=== PATIENT | male | born 1980 | race Hispanic/Latino ===

== ENCOUNTER 2018-10-02 19:40 | Observation (INO) | payer OTHER, SELFPAY ==
[2018-10-02 21:03] LABS: Absolute Lymphocytes (CBC) 1.8 K/uL (0.7-4.9); Absolute Monocytes 0.7 K/uL (0.1-1.3); Absolute Neutrophil 10.1 K/uL (1.8-8.0); Basophils % 0.6 % (0-1.3); Eosinophils % 0.2 % (0-4.4); Hematocrit 48.1 % (39.6-49.0); Lymphocytes % 14.3 % (15.3-44.8); MCH 28.7 pg (27.0-35.0); MCV 84.3 fL (80-100); Monocytes % 5.4 % (3.3-12.3)
--- NOTE | 2018-10-02 21:04 | RAD REPORT ---
EXAM DESCRIPTION: CT - Head Brain Wo Cont - 10/02/2018 8:57 pm CLINICAL HISTORY: ataxia, falls to left Drowsiness COMPARISON: No comparisons TECHNIQUE: All CT scans are performed using dose optimization technique as appropriate and may inclu de automated exposure control or mA/KV adjustment according to patient size. FINDINGS: No intracranial hemorrhage, hydrocephalus or extra-axial fluid collection.No areas of brai n edema or evidence of midline shift. Small mucous retention cyst is seen in the right maxillary antrum. The paranasal sinuses and mastoids are otherwise clear. The calvarium is intact. IMPRESSION: No acute intracranial abnormality.
[2018-10-02 21:33] LABS: Protime INR 1.03
[2018-10-02 21:35] LABS: ALT/SGPT 37 U/L (12-78); AST/SGOT 23 U/L (15-37); Alkaline Phosphatase 118 U/L (45-117); BUN Blood Urea Nitrogen 11 mg/dL (7-18); Bicarbonate 25 mmol/L (21-32); Bilirubin Direct 0.1 mg/dL (0-0.2); Bilirubin Total 0.6 mg/dL (0.2-1.0); Glucose Level 97 mg/dL (74-106); Potassium 3.7 mmol/L (3.5-5.1); Protein, Total 7.9 g/dL (6.4-8.2); Sodium Level 141 mmol/L (136-145); Troponin (Emerg Dept Use Only) < 0.02 ng/mL (0.0-0.045)
--- NOTE | 2018-10-02 22:14 | ER ---
Nurse's Notes [facility] Name: Boby Allen Age: 38 yrs Sex: Male : 1980 Arrival Date: 10/02/2018 Time: 19:48 Bed 19 Private MD: Diagnosis: Ataxia, unspecified Presentation: 10/02 19:53 Presenting complaint: Patient states: seen at urgent care at 1800 for "walking to left ak1 at 4pm." pt with unsteady gait at 1600 today. Transition of care: patient was not received from another setting of care. Onset of symptoms is unknown. Care prior to arrival: None. 19:53 Method Of Arrival: Ambulatory ak1 19:53 Acuity: TANK 3 ak1 20:59 Risk Assessment: Do you want to hurt yourself or someone else? Patient reports no lp1 desire to harm self or others. Initial Sepsis Screen: Does the patient meet any 2 criteria? No. Patient's initial sepsis screen is negative. Does the patient have a suspected source of infection? No. Patient's initial sepsis screen is negative. Historical: - Allergies: 19:55 No Known Allergies; ak1 - Home Meds: 19:55 None [Active]; ak1 - PMHx: 19:55 None; ak1 - PSHx: 19:55 Cholecystectomy; ak1 - Immunization history:: Adult Immunizations up to date. - Social history:: Smoking status: Patient/guardian denies using tobacco. - Family history:: not pertinent. - Ebola Screening: : No symptoms or risks identified at this time. - Hospitalizations: : No recent hospitalization is reported. Screenin:58 Abuse screen: Denies threats or abuse. Denies injuries from another. Nutritional lp1 screening: No deficits noted. Tuberculosis screening: No symptoms or risk factors identified. Fall Risk None identified. 22:20 Patient has been NPO before screening. The patient is alert, able to follow commands. lp1 The patient does not exhibit slurred or garbled speech The patient is not exhibiting difficulty speaking. The patient does not exhibit difficulty understanding words. The patient is able to swallow own secretions with no drooling or need for suction. Patient tolerated one teaspoon of water. No drooling, immediate coughing, gurgling, or clearing of the throat was noted. The patient tolerated 90mL of water. No drooling, immediate coughing, gurgling, or clearing of the throat was noted. The patient passed the bedside swallow screening. Oral medications may be given as ordered. Contact Physician for further diet orders. Provider notified of bedside swallow screening results: Bar Andesren MD. Assessment: 20:15 General: Appears in no apparent distress. comfortable, Behavior is calm, cooperative, lp1 appropriate for age. Pain: Complains of pain in back of head. Neuro: Level of Consciousness is awake, alert, obeys commands, Oriented to person, place, time, situation, Land Use Planner are equal bilaterally Moves all extremities. Full function Gait is steady, Speech is normal, Facial symmetry appears normal, Pupils are PERRLA, Intact Reports headache occipital area. Cardiovascular: Patient's skin is warm and dry. Rhythm is sinus rhythm. Respiratory: Respiratory effort is even, unlabored. GI: Abdomen is non-distended. : No signs and/or symptoms were reported regarding the genitourinary system. EENT: No signs and/or symptoms were reported regarding the EENT system. Derm: Skin is pink, warm \\T\\ dry. Musculoskeletal: Circulation, motion, and sensation intact. 21:15 Reassessment: Patient appears in no apparent distress at this time. No changes from lp1 previously documented assessment. Patient and/or family updated on plan of care and expected duration. Pain level reassessed. 22:15 Reassessment: Patient and/or family updated on plan of care and expected duration. Pain lp1 level reassessed. Patient is alert, oriented x 3, equal unlabored respirations, skin warm/dry/pink. Patient denies pain at this time. 23:15 Reassessment: Patient is alert, oriented x 3, equal unlabored respirations, skin lp1 warm/dry/pink. Patient and family aware of pending admission. 10/03 00:20 Reassessment: Attempted to call report, nurse will call back. lp1 Vital Signs: 10/02 19:55 BP 132 / 80; Pulse 83; Resp 18; Temp 98; Pulse Ox 98% on R/A; Weight 99.79 kg (R); ak1 Height 5 ft. 7 in. (170.18 cm) (R); Pain 0/10; 21:00 BP 115 / 66; Pulse 70; Resp 18; Pulse Ox 97% on R/A; lp1 22:00 BP 115 / 73; Pulse 71; Resp 18; Pulse Ox 97% on R/A; lp1 23:00 BP 125 / 78; Pulse 60; Resp 18; Pulse Ox 96% on R/A; lp1 10/03 00:00 BP 119 / 77; Pulse 68; Resp 18; Pulse Ox 96% on R/A; lp1 10/02 19:55 Body Mass Index 34.46 (99.79 kg, 170.18 cm) ak1 NIH Stroke Scale Scores: 10/02 20:15 NIHSS Score: 0 lp1 ED Course: 19:48 Patient arrived in ED. al2 19:55 Triage completed. ak1 19:55 Arm band placed on Patient placed in an exam room, Patient notified of wait time. ak1 20:01 Arlin Enamorado RN is Primary Nurse. lp1 20:07 Bar Andersen MD is Attending Physician. rn 20:15 Patient has correct armband on for positive identification. Placed in gown. Bed in low lp1 position. satellite project site monitor on. Pulse ox on. NIBP on. 20:45 Inserted saline lock: 20 gauge in left antecubital area, using aseptic technique. Blood lp1 collected. 20:58 CT completed. Patient tolerated procedure well. Patient moved back from CT. bq 22:13 Skylar Roberts MD is Hospitalizing Provider. rn 10/03 00:06 Patient moved to radiology via wheelchair. sg4 00:11 No provider procedures requiring assistance completed. Patient admitted, IV remains in lp1 place. Administered Medications: 10/02 22:24 Drug: Aspirin Chewable Tablet 324 mg Route: PO; lp1 10/03 00:28 Follow up: Response: No adverse reaction lp1 Point of Care Testing: Blood Glucose: 10/02 20:53 Blood Glucose: 97 mg/dL; lp1 Ranges: Outcome: 22:14 Decision to Hospitalize by Provider. rn 10/03 00:12 Condition: stable lp1 Instructed on the need for admit. 00:48 Admitted to Tele accompanied by tech, via wheelchair, room 408, with chart, Report lp1 called to SHUBHAM Mehta 00:52 Patient left the ED. lp1 NIH Stroke Scale - NIH Stroke Score Date: 10/02/2018 Time: 20:15 Total Score = 0 1a. Level of Consciousness (LOC) - 0(Alert) 1b. Level of Consciousness (LOC) (Year \\T\\ Age) - 0(Both) 1c. LOC Commands (Open \\T\\ Closes Eyes/Roto Rooter Operator) - 0(Both) 2. Best Gaze (Lateral Gaze Paresis) - 0(Normal) 3. Visual Field Loss - 0(No visual loss) 4. Facial Palsy - 0(Normal) 5a. Left Arm: Motor (10-second hold) - 0(No drift) 5b. Right Arm: Motor (10-second hold) - 0(No drift) 6a. Left Leg: Motor (5-second hold - always test supine) - 0(No drift) 6b. Right Leg: Motor (5-second hold - always test supine) - 0(No drift) 7. Limb Ataxia (finger/nose \\T\\ heel/armstrong - test with eyes open) - 0(Absent) 8. Sensory Loss (pinprick arms/legs/face) - 0(Normal) 9. Best Language: Aphasia (description/naming/reading) - 0(No aphasia) 10. Dysarthria (speech clarity - read or repeat words) - 0(Normal) 11. Extinction and Inattention (visual/tactile/auditory/spatial/personal) - 0(No abnormality) Initials: lp1 Signatures: Antonia Westbrook Roman, MD MD rn Pena, Laura RN RN lp1 Danelle Cobian RN RN ak1 Harper, Natalie araiza2 Darby Smith sg4
--- NOTE | 2018-10-02 22:15 | EDPHYS ---
Physician Documentation [facility] Name: Boby Allen Age: 38 yrs Sex: Male : 1980 Arrival Date: 10/02/2018 Time: 19:48 Bed 19 Private MD: ED Physician Bar Andersen HPI: 10/02 20:45 This 38 yrs old Male presents to ER via Ambulatory with complaints of trouble rn walking. 20:45 The patient presents to the emergency department with difficult walking, the patient rn falls to the left. Onset: The symptoms/episode began/occurred at 16:00. Associated signs and symptoms: Pertinent negatives: chills, dizziness, fever, neck stiffness, paresthesias, near-syncope, blurred vision, double vision, visual field changes, loss of vision, weakness. Severity of symptoms: At their worst the symptoms were moderate in the emergency department the symptoms have resolved. Current symptoms: Currently, the patient is not experiencing any symptoms. The patient has not experienced similar symptoms in the past. The patient has not recently seen a physician. Reports falling to left and feeling off balance, began around 4PM today, lasted 30 min to 1 hour, no associating focal weakness, no head injury, no vomiting, no speech difficulty, reports symptoms now entirely resolved, has not happened before. . Historical: - Allergies: 19:55 No Known Allergies; ak1 - Home Meds: 19:55 None [Active]; ak1 - PMHx: 19:55 None; ak1 - PSHx: 19:55 Cholecystectomy; ak1 - Immunization history:: Adult Immunizations up to date. - Social history:: Smoking status: Patient/guardian denies using tobacco. - Family history:: not pertinent. - Ebola Screening: : No symptoms or risks identified at this time. - Hospitalizations: : No recent hospitalization is reported. ROS: 20:45 Constitutional: Negative for fever, chills, and weight loss, Eyes: Negative for injury, rn pain, redness, and discharge, Neck: Negative for injury, pain, and swelling, Cardiovascular: Negative for chest pain, palpitations, and edema, Respiratory: Negative for shortness of breath, cough, wheezing, and pleuritic chest pain, Abdomen/GI: Negative for abdominal pain, nausea, vomiting, diarrhea, and constipation, MS/Extremity: Negative for injury and deformity, Skin: Negative for injury, rash, and discoloration, Neuro: Negative for headache, weakness, numbness, tingling, and seizure. Exam: 20:45 Constitutional: This is a well developed, well nourished patient who is awake, alert, rn and in no acute distress. Head/Face: Normocephalic, atraumatic. Eyes: Pupils equal round and reactive to light, extra-ocular motions intact. Lids and lashes normal. Conjunctiva and sclera are non-icteric and not injected. Cornea within normal limits. Periorbital areas with no swelling, redness, or edema. ENT: MMM Cardiovascular: Regular rate and rhythm with a normal S1 and S2. No gallops, murmurs, or rubs. No pulse deficits. Respiratory: Lungs have equal breath sounds bilaterally, clear to auscultation Abdomen/GI: soft, non-tender MS/ Extremity: Pulses equal, no cyanosis. Neurovascular intact. Full, normal range of motion. Equal circumference. Neuro: Awake and alert, GCS 15, oriented to person, place, time, and situation. Cranial nerves II-XII grossly intact. Motor strength 5/5 in all extremities. Sensory grossly intact. Cerebellar exam normal. Normal gait. Vital Signs: 19:55 BP 132 / 80; Pulse 83; Resp 18; Temp 98; Pulse Ox 98% on R/A; Weight 99.79 kg (R); ak1 Height 5 ft. 7 in. (170.18 cm) (R); Pain 0/10; 21:00 BP 115 / 66; Pulse 70; Resp 18; Pulse Ox 97% on R/A; lp1 22:00 BP 115 / 73; Pulse 71; Resp 18; Pulse Ox 97% on R/A; lp1 23:00 BP 125 / 78; Pulse 60; Resp 18; Pulse Ox 96% on R/A; lp1 10/03 00:00 BP 119 / 77; Pulse 68; Resp 18; Pulse Ox 96% on R/A; lp1 10/02 19:55 Body Mass Index 34.46 (99.79 kg, 170.18 cm) ak1 NIH Stroke Scale Scores: 10/02 20:15 NIHSS Score: 0 lp1 MDM: 20:07 Patient medically screened. rn 20:22 ED course: Pt now back to baseline, reports ataxia, falling only to left side, lasted rn 30 min to 1 hour, asymptomatic now, able to walk, no other symptoms, possible TIA. . 22:13 Data reviewed: vital signs, nurses notes, lab test result(s), EKG, radiologic studies, rn CT scan, and as a result, I will admit patient. Counseling: I had a detailed discussion with the patient and/or guardian regarding: the historical points, exam findings, and any diagnostic results supporting the discharge/admit diagnosis, lab results, radiology results, the need for further work-up and treatment in the hospital. Admission orders: after a detailed discussion of the patient's condition and case, the admit orders are written by me. ED course: Pt back to normal, possible TIA, will admit for TIA w/u.. 10/02 20:22 Order name: Basic Metabolic Panel rn 10/02 20:22 Order name: CBC with Diff rn 10/02 20:22 Order name: Hepatic Function rn 10/02 20:22 Order name: Magnesium rn 10/02 20:22 Order name: Protime (+inr) rn 10/02 20:22 Order name: Ptt, Activated rn 10/02 20:22 Order name: Troponin (emerg Dept Use Only) rn 10/02 21:25 Order name: CBC with Automated Diff; Complete Time: 22:01 EDCO 10/02 21:35 Order name: Basic Metabolic Panel; Complete Time: 22:01 EDCO 10/02 21:35 Order name: Liver (Hepatic) Function; Complete Time: 22:01 EDCO 10/02 21:35 Order name: Troponin (Emerg Dept Use Only); Complete Time: 22:01 EDCO 10/02 21:35 Order name: Magnesium; Complete Time: 22:01 EDCO 10/02 21:44 Order name: Protime (+INR); Complete Time: 22:01 EDCO 10/02 21:44 Order name: PTT, Activated Partial Thromb; Complete Time: 22:01 EDCO 10/02 20:22 Order name: CT Head Brain wo Cont rn 10/02 20:22 Order name: EKG; Complete Time: 20:23 rn 10/02 20:22 Order name: Cardiac monitoring; Complete Time: 20:55 rn 10/02 20:22 Order name: EKG - Nurse/Tech; Complete Time: 20:55 rn 10/02 20:22 Order name: IV Saline Lock; Complete Time: 20:55 rn 10/02 20:22 Order name: Labs collected and sent; Complete Time: 20:55 rn 10/02 20:22 Order name: NPO; Complete Time: 20:55 rn 10/02 20:22 Order name: O2 Per Protocol; Complete Time: 20:55 rn 10/02 20:22 Order name: O2 Sat Monitoring; Complete Time: 20:55 rn 10/02 21:04 Order name: CT; Complete Time: 22:01 EDMS Administered Medications: 22:24 Drug: Aspirin Chewable Tablet 324 mg Route: PO; lp1 10/03 00:28 Follow up: Response: No adverse reaction lp1 Point of Care Testing: Blood Glucose: 10/02 20:53 Blood Glucose: 97 mg/dL; lp1 Ranges: Critical Glucose Levels:Adult <50 mg/dl or >400 mg/dl <40 mg/dl or >180 mg/dl Disposition: 10/02/18 22:14 Hospitalization ordered by Skylar Roberts for Observation. Preliminary diagnosis is Ataxia, unspecified. - Bed requested for Telemetry/MedSurg (observation). - Status is Observation. lp1 - Condition is Stable. - Problem is new. - Symptoms are resolved. UTI on Admission? No NIH Stroke Scale - NIH Stroke Score Date: 10/02/2018 Time: 20:15 Total Score = 0 1a. Level of Consciousness (LOC) - 0(Alert) 1b. Level of Consciousness (LOC) (Year \T\ Age) - 0(Both) 1c. LOC Commands (Open \T\ Closes Eyes/Motorcycle Repair Shop Supervisor) - 0(Both) 2. Best Gaze (Lateral Gaze Paresis) - 0(Normal) 3. Visual Field Loss - 0(No visual loss) 4. Facial Palsy - 0(Normal) 5a. Left Arm: Motor (10-second hold) - 0(No drift) 5b. Right Arm: Motor (10-second hold) - 0(No drift) 6a. Left Leg: Motor (5-second hold - always test supine) - 0(No drift) 6b. Right Leg: Motor (5-second hold - always test supine) - 0(No drift) 7. Limb Ataxia (finger/nose \T\ heel/armstrong - test with eyes open) - 0(Absent) 8. Sensory Loss (pinprick arms/legs/face) - 0(Normal) 9. Best Language: Aphasia (description/naming/reading) - 0(No aphasia) 10. Dysarthria (speech clarity - read or repeat words) - 0(Normal) 11. Extinction and Inattention (visual/tactile/auditory/spatial/personal) - 0(No abnormality) Initials: lp1 Signatures: Dispatcher [employer] EDClarissa Carnes, RN RN Bar Malik MD MD rn Pena, Laura, RN RN lp1 Danelle Cobian RN RN ak1 Corrections: (The following items were deleted from the chart) 10/03 00:03 10/02 22:14 Hospitalization Ordered by Skylar Roberts MD for Observation. joselin Preliminary diagnosis is Ataxia, unspecified. Bed requested for Telemetry/MedSurg (observation). Status is Observation. Condition is Stable. Problem is new. Symptoms are resolved. UTI on Admission? No. rn 10/03 00:52 00:03 10/02/2018 22:14 Hospitalization Ordered by Skylar Roberts MD for lp1 Observation. Preliminary diagnosis is Ataxia, unspecified. Bed requested for Telemetry/MedSurg (observation). Status is Observation. Condition is Stable. Problem is new. Symptoms are resolved. UTI on Admission? No. joselin
[2018-10-02] MEDS ORDERED: ASPIRIN 81 MG CHEWABLE TABLET ONE (22:30)
[2018-10-02] MEDS ORDERED: ACETAMINOPHEN 500 MG TAB PO PRN (23:48)
[2018-10-02] MEDS ORDERED: ONDANSETRON 4 MG/2 ML VIAL IV PRN (23:48)
[2018-10-03 01:04] VITALS: BMI 40.2
[2018-10-03] MEDS: NA CHLORIDE 0.9% 1,000 ML IV SCH ×3 (01:05→20:42)
--- NOTE | 2018-10-03 06:16 | EKG ---
Test Date: 2018-10-02 Test Time: 20:23:34 Truck Car And Bus Cleaner: HENRY MEASUREMENT RESULTS: Intervals: Rate: 94 SD: 164 QRSD: 100 QT: 362 QTc: 452 [place]: P: 23 SD: 164 QRS: 79 T: -2 INTERPRETIVE STATEMENTS: Normal sinus rhythm Minimal voltage criteria for LVH, may be normal variant Inferior infarct, age undetermined Abnormal ECG No previous ECG available for comparison Electronically Signed On 10-03-18 06:16:01 CHAIN LINK FENCE INSTALLER by Cliff Hart
[2018-10-03 06:24] LABS: Absolute Monocytes 0.8 K/uL (0.1-1.3); Absolute Neutrophil 5.2 K/uL (1.8-8.0); Basophils % 0.9 % (0-1.3); Eosinophils % 2.5 % (0-4.4); Hematocrit 44.7 % (39.6-49.0); Lymphocytes % 24.2 % (15.3-44.8); MCH 29.2 pg (27.0-35.0); MCV 84.1 fL (80-100); MPV 9.1 fL (7.6-11.3); Monocytes % 9.3 % (3.3-12.3); RBC Red Blood Cell Count 5.31 M/uL (4.33-5.43)
[2018-10-03 06:57] LABS: ALT/SGPT 30 U/L (12-78); AST/SGOT 13 U/L (15-37); Albumin 3.3 g/dL (3.4-5.0); Alkaline Phosphatase 109 U/L (45-117); BUN Blood Urea Nitrogen 12 mg/dL (7-18); Bicarbonate 24 mmol/L (21-32); Bilirubin Total 0.5 mg/dL (0.2-1.0); Glucose Level 113 mg/dL (74-106); HDL Cholesterol 28 mg/dL (40-60); LDL Cholesterol, Calculated 123 (<130); Phosphorus 3.3 mg/dL (2.5-4.9); Potassium 3.7 mmol/L (3.5-5.1); Protein, Total 6.7 g/dL (6.4-8.2); Sodium Level 142 mmol/L (136-145)
--- NOTE | 2018-10-03 07:34 | RAD REPORT ---
EXAM DESCRIPTION: RAD - Chest Pa And Lat (2 Views) - 10/03/2018 12:57 am CLINICAL HISTORY: Stroke chest film COMPARISON: None. TECHNIQUE: PA and lateral views of the chest were obtained. FINDINGS: The lungs are underinflated. No focal mass, consolidation or failure finding. Baseline pat tern is unknown. Interstitial markings are mildly prominent but probably not an acute process. Hear t size is normal and central vasculature is within normal limits. No pleural effusion or pneumothora x seen. No acute bony finding noted. No aortic abnormality. IMPRESSION: Baseline chest examination felt to be without an acute cardiopulmonary finding.
[2018-10-03] MEDS ORDERED: CLOPIDOGREL 75 MG TABLET PO SCH (09:00)
[2018-10-03] MEDS ORDERED: POTASSIUM CL SA 10 MEQ TAB PO ONE (09:00)
--- NOTE | 2018-10-03 09:38 | P.HP ---
Certification for Inpatient Patient admitted to: Observation With expected LOS: <2 Midnights Patient will require the following post-hospital care: None Practitioner: I am a practitioner with admitting privileges, knowledge of patient current condition, hospital course, and medical plan of care. Services: Services provided to patient in accordance with Admission requirements found in Title 42 Section 412.3 of the Code of Federal Regulations Patient History Date of Service: 10/02/18 Reason for admission: TIA History of Present Illness: Patient is a 38-year-old gentleman who came into the hospital having difficulty ambulating. He states he was ataxic and he was drifting to the left side. He was unable to keep his balance well. He came into the hospital after talking with his family. While in the emergency room his symptoms resolved. He had a workup for a stroke. Patient's CT scan of the brain was negative. He will be admitted to the hospital for further evaluation. Allergies No Known Allergies Allergy (Unverified 10/02/18 22:48) Home Medications: NK [No Home Meds] 10/03/18 - Past Medical/Surgical History Diabetic: No -: none -: cholecystectomy - Family History Mother Medical History: Hypertension, Diabetes Father Medical History: Hypertension - Social History Smoking Status: Never smoker Alcohol use: Yes CD- Drugs: No Caffeine use: Yes Place of Residence: Home Review of Systems 10-point ROS is otherwise unremarkable Physical Examination - Vital Signs Temperature: 97.9 F Blood Pressure: 133/76 Pulse: 67 Respirations: 18 Pulse Ox (%): 97 - Physical Exam General: Alert, In no apparent distress, Oriented x3 HEENT: Atraumatic, Normocephalic Neck: Supple, 2+ carotid pulse no bruit, JVD not distended, No Thyromegaly, No LAD Respiratory: Clear to auscultation bilaterally, Normal air movement Cardiovascular: Regular rate/rhythm, Normal S1 S2, No murmurs Gastrointestinal: Normal bowel sounds, Soft and benign, Non-distended, No tenderness Musculoskeletal: No clubbing, No swelling, No contractures Integumentary: No rashes Neurological: Normal gait, Normal speech, Normal strength at 5/5 x4 extr, Normal tone, Sensation intact, Cranial nerves 3-12 intact Lymphatics: No axilla or inguinal lymphadenopathy - Studies Laboratory Data (last 24 hrs) 10/02/18 20:45: PT 12.2, INR 1.03, APTT 36.0 10/02/18 20:45: WBC 12.6 H, Hgb 16.4, Hct 48.1, Plt Count 198 10/02/18 20:45: Sodium 141, Potassium 3.7, BUN 11, Creatinine 0.90, Glucose 97, Magnesium 2.0, Total Bilirubin 0.6, AST 23, ALT 37, Alkaline Phosphatase 118 H Assessment & Plan - Problems (Diagnosis) (1) TIA (transient ischemic attack) Current Visit: Yes Status: Acute (2) Ataxic gait Current Visit: Yes Status: Acute (3) Morbid obesity with BMI of 40.0-44.9, adult Current Visit: Yes Status: Acute - Plan 1. MRI of the brain 2. Echocardiogram and carotid Doppler 3. Anti-platelet therapy and statin therapy 4. Neurology consultation 5. Physical therapy/occupational therapy/speech therapy evaluation 6. DVT prophylaxis Discharge Plan: Home Plan to discharge in: 48 Hours - Advance Directives Does patient have a Living Will: No Does patient have a Durable POA for Healthcare: No - Code Status/Comfort Care Code Status: Full Code Critical Care: No Time Spent Managing PTS Care (In Minutes): 50
[2018-10-03] MEDS: ASPIRIN EC 81 MG TAB PO SCH (09:41)
[2018-10-03] MEDS: ENOXAPARIN 40 MG/0.4 ML SQ SCH (09:42)
--- NOTE | 2018-10-03 15:15 | P.PN ---
Subjective Date of Service: 10/03/18 Primary Care Provider: Dr. Garcia([place], [place]) Chief Complaint: TIA Subjective: Improving, Doing well Physical Examination - Vital Signs Temperature: 98.0 F Blood Pressure: 115/69 Pulse: 66 Respirations: 18 Pulse Ox (%): 98 - Physical Exam General: Alert, In no apparent distress, Oriented x3, Cooperative HEENT: Atraumatic Neck: Supple Respiratory: Clear to auscultation bilaterally, Normal air movement Cardiovascular: Normal pulses, Regular rate/rhythm Gastrointestinal: Normal bowel sounds, Soft and benign, Non-distended, No tenderness, No masses, No rebound, No guarding Musculoskeletal: No erythema, No tenderness, No warmth Integumentary: No tenderness/swelling, No erythema, No warmth, No cyanosis Neurological: Normal speech, Normal strength at 5/5 x4 extr, Normal tone, Normal affect - Studies Laboratory Data (last 24 hrs) 10/02/18 20:45: PT 12.2, INR 1.03, APTT 36.0 10/02/18 20:45: WBC 12.6 H, Hgb 16.4, Hct 48.1, Plt Count 198 10/02/18 20:45: Sodium 141, Potassium 3.7, BUN 11, Creatinine 0.90, Glucose 97, Magnesium 2.0, Total Bilirubin 0.6, AST 23, ALT 37, Alkaline Phosphatase 118 H Medications List Reviewed: Yes Assessment & Plan Discharge Plan: Home Plan to discharge in: 24 Hours Physician Review Additional Text: Impression: Ataxia resolved likely TIA Hyperlipidemia Obesity, BMI 40 Plan: Ataxia resolved likely TIA: Overall improved. No ataxia no longer present. Due to the severity of his symptoms await stroke protocol MRI, echocardiogram and carotid Doppler. This will happen tomorrow. If unremarkable patient can be discharged home with aspirin 81 mg daily and Lipitor 40 mg daily. Will continue have patient work with physical therapy. Patient has done well. If CVA positive will need to consider home health and physical therapy at discharge. I will turn the service over to Dr. Ross tomorrow. I will go over the plan of care with her. Hyperlipidemia: LDL 123. Will continue with Lipitor 40 mg daily. Obesity, BMI 40: Continue with lifestyle modification education. Weight loss recommended. Patient should be evaluated as an outpatient for possible underlying sleep apnea. Time Spent Managing Pts Care (In Minutes): 55
[2018-10-03] MEDS ORDERED: ATORVASTATIN 20 MG TAB PO SCH (21:00)
[2018-10-04] MEDS: NA CHLORIDE 0.9% 1,000 ML IV SCH (01:22)
[2018-10-04 05:07] LABS: BUN Blood Urea Nitrogen 8 mg/dL (7-18); Bicarbonate 24 mmol/L (21-32); Glucose Level 101 mg/dL (74-106); Potassium 3.9 mmol/L (3.5-5.1); Sodium Level 145 mmol/L (136-145)
[2018-10-04] MEDS ORDERED: POTASSIUM CL SA 10 MEQ TAB PO ONE (07:45)
--- NOTE | 2018-10-04 08:22 | RAD REPORT ---
EXAM DESCRIPTION: USCarotid Artery Sgnegnmmu12/2/2018 11:16 pm CLINICAL HISTORY: TIA COMPARISON: None FINDINGS: The velocity of the right internal carotid artery equals 59 cm/sec. The right ICA/CCA rati o 0.7 The velocity of the left internal carotid artery equals 47 cm/sec. The left ICA/CCA ratio 0.6 Plaque within the carotid arteries not seen. The vertebral arteries demonstrate antegrade flow IMPRESSION: Unremarkable exam NASCET criteria used. Mild 0-49% stenosis Moderate 50-69% stenosis Severe 70-99% stenosis
[2018-10-04] MEDS: ENOXAPARIN 40 MG/0.4 ML SQ SCH (09:08)
[2018-10-04] MEDS: ASPIRIN EC 81 MG TAB PO SCH (09:09)
--- NOTE | 2018-10-04 09:51 | RAD REPORT ---
EXAM DESCRIPTION: MRI - Brain W/Wo Cont - 10/04/2018 8:44 am CLINICAL HISTORY: Vertigo. COMPARISON: October 02, [address] TECHNIQUE: Axial, sagittal, and coronal magnetic images of the brain were obtained. 20 cc MultiHance administered intravenously FINDINGS: No abnormal signal within the brain is noted. The ventricles are normal in caliber. Diffusion-weighted sequences do not demonstrate evidence of an acute infarction. No abnormal enhancement within the brain is seen. An extra-axial fluid collection is not noted. Fluid within the sinuses/mastoids is not seen. A mucus retention cyst right maxillary sinus IMPRESSION: Unremarkable brain MRI.
--- NOTE | 2018-10-04 09:56 | RAD REPORT ---
EXAM DESCRIPTION: MRI - MRA Head Wo Cont - 10/04/2018 8:44 am CLINICAL HISTORY: Ataxia COMPARISON: None. TECHNIQUE: Magnetic resonance angiogram was performed.Source images were reviewed and reconstructed at 360 degrees rotation. Magnetic resonance angiogram was performed. 3D MIPS reconstruction performed FINDINGS: The anterior cerebral, middle cerebral, posterior cerebral, distal internal carotid and ba silar arteries do not demonstrate a significant stenosis. An aneurysm is not displayed. IMPRESSION: Unremarkable MRA brain.
--- NOTE | 2018-10-04 09:59 | RAD REPORT ---
EXAM DESCRIPTION: MRI - MRA Neck W/Wo Cont - 10/04/2018 8:44 am CLINICAL HISTORY: TIA COMPARISON: None. TECHNIQUE: Magnetic resonance angiogram of the neck was performed. 19 cc MultiHance was administered intravenously. 3D MIPS reconstruction performed FINDINGS: The common carotid, internal carotid and external carotid arteries do not demonstrate a si gnificant stenosis. An aneurysm is not seen. The vertebral arteries are codominant without visualization of an abnormality. IMPRESSION: Unremarkable MRA neck NASCET criteria used. Mild 0-49% stenosis Moderate 50-69% stenosis Severe 70-99% stenosis
[2018-10-04 11:20] VITALS: O2SAT 99
--- NOTE | 2018-10-04 11:39 | ECHO ---
HEIGHT: 5 ft 4 in WEIGHT: 234 lb 6.4 oz DATE OF STUDY: 10/04/[address]: Skylar Roberts MD 2-DIMENSIONAL: YES M.MODE: YES DOPPLER: YES COLOR FLOW: YES TDS: NO PORTABLE: NO DEFINITY: NO BUBBLE STUDY: NO DIAGNOSIS: STROKE CARDIAC HISTORY: CATHERIZATION: NO SURGERY: NO PROSTHETIC VALVE: NO PACEMAKER: NO MEASUREMENTS (cm) DIASTOLIC (NORMALS) SYSTOLIC (NORMALS) IVSd 1.0 (0.6-1.2) LA Diam 3.4 (1.9-4.0) LVEF 52% LVIDd 4.6 (3.5-5.7) LVIDs 3.4 (2.0-3.5) %FS 26% LVPWd 1.0 (0.6-1.2) Ao Diam 2.9 (2.0-3.7) 2 DIMENSIONAL ASSESSMENT: RIGHT ATRIUM: NORMAL LEFT ATRIUM: NORMAL RIGHT VENTRICLE: NORMAL LEFT VENTRICLE: NORMAL TRICUSPID VALVE: NORMAL MITRAL VALVE: NORMAL PULMONIC VALVE: NORMAL AORTIC VALVE: NORMAL PERICARDIAL EFFUSION: NONE AORTIC ROOT: NORMAL LEFT VENTRICULAR WALL MOTION: NORMAL DOPPLER/COLOR FLOW: NORMAL COMMENTS: NORMAL 2D ECHOCARDIOGRAM WITH DOPPLER. TECHNOLOGIST: Yvette TARANGO
[2018-10-04 12:50] VITALS: TEMP 97.3
[2018-10-04 16:53] VITALS: BP 119/70
--- NOTE | 2018-10-04 17:09 | P.DS ---
Admission Date: 10/02/18 Discharge Date: 10/04/18 Primary Care Provider: Dr. Garcia([place], [place]) Disposition: ROUTINE DISCHARGE Discharge Condition: GOOD Reason for Admission: TIA Consultations: Neurology - Problems (1) TIA (transient ischemic attack) Onset Date: 10/04/18 Current Visit: Yes Status: Ruled-out (2) Ataxic gait Onset Date: 10/04/18 Current Visit: Yes Status: Acute (3) Morbid obesity with BMI of 40.0-44.9, adult Onset Date: 10/04/18 Current Visit: Yes Status: Acute Brief History of Present Illness: Patient is a 38-year-old gentleman who came into the hospital having difficulty ambulating. He states he was ataxic and he was drifting to the left side. He was unable to keep his balance well. He came into the hospital after talking with his family. While in the emergency room his symptoms resolved. He had a workup for a stroke. Patient's CT scan of the brain was negative. He will be admitted to the hospital for further evaluation. Hospital Course: Overall during the hospital stay patient remained stable Patient was initially admitted to the hospital for ataxic gait most likely secondary to possible TIA. Patient had marked resolution of his symptoms while here in the hospital. Patient had extensive workup done here to rule out any acute CVA. MRI of the brain along with MRA and carotid Doppler along with echocardiogram which were all within normal limits. Patient has ataxia did resolve while here in the hospital as well. Patient to be while here in the hospital as well. Patient then was discharged home under stable condition. Patient does not have any risk factors which increase his ASCVD risk and thus was educated extensively on aspirin over the counter along with Statin therapy. the patient stated that he would like to follow up with his primary care provider on discharge and Discuss about dietary changes vs medication. Patient was educated extensively on low-fat was given education at discharge as well. Patient was asked to follow up with his primary care was discussed Vital Signs/Physical Exam: Temp Pulse Resp BP Pulse Ox 97.3 F 65 16 119/70 95 10/04/18 16:00 10/04/18 16:00 10/04/18 16:00 10/04/18 16:00 10/04/18 16:00 General: Alert, In no apparent distress HEENT: Atraumatic, PERRLA, EOMI Neck: Supple, JVD not distended Respiratory: Clear to auscultation bilaterally, Normal air movement Cardiovascular: Regular rate/rhythm, Normal S1 S2 Gastrointestinal: Normal bowel sounds, No tenderness Musculoskeletal: No tenderness Integumentary: No rashes Neurological: Normal speech, Normal tone, Normal affect Lymphatics: No axilla or inguinal lymphadenopathy Laboratory Data at Discharge: WBC 8.2 K/uL (4.3-10.9) D 10/03/18 06:05 Hgb 15.5 g/dL (13.6-17.9) 10/03/18 06:05 Hct 44.7 % (39.6-49.0) 10/03/18 06:05 Plt Count 207 K/uL (152-406) 10/03/18 06:05 PT 12.2 SECONDS (9.5-12.5) 10/02/18 20:45 INR 1.03 10/02/18 20:45 APTT 36.0 SECONDS (24.3-36.9) 10/02/18 20:45 Sodium 145 mmol/L (136-145) 10/04/18 03:44 Potassium 3.9 mmol/L (3.5-5.1) 10/04/18 03:44 BUN 8 mg/dL (7-18) 10/04/18 03:44 Creatinine 0.70 mg/dL (0.55-1.3) 10/04/18 03:44 Glucose 101 mg/dL (74-106) 10/04/18 03:44 Phosphorus 3.3 mg/dL (2.5-4.9) 10/03/18 06:05 Magnesium 2.0 mg/dL (1.8-2.4) 10/03/18 06:05 Total Bilirubin 0.5 mg/dL (0.2-1.0) 10/03/18 06:05 AST 13 U/L (15-37) L 10/03/18 06:05 ALT 30 U/L (12-78) 10/03/18 06:05 Alkaline Phosphatase 109 U/L (45-117) 10/03/18 06:05 Triglycerides 132 mg/dL (<150) 10/03/18 06:05 Cholesterol 177 mg/dL (<200) 10/03/18 06:05 HDL Cholesterol 28 mg/dL (40-60) L 10/03/18 06:05 Cholesterol/HDL Ratio 6.32 10/03/18 06:05 Home Medications: NK [No Home Meds] 10/03/18 Diet: Regular Activity: Ad janeth Followup: Angel Araujo MD [ACTIVE - CAN ADMIT] - Héctor Garcia MD [Primary Care Provider] -
== END 2018-10-04 18:00 | disposition home or self-care (01) ==
LOC: ER 19:40 → ERHOLD 22:15 → 4TH 10-03 00:48
PROVIDERS: ADMIT Hospitalist; ATTEND Hospitalist
DX: R26.0 Ataxic gait (principal); E66.01 Morbid (severe) obesity due to excess calories; Z68.41 Body mass index [BMI] 40.0-44.9, adult; E78.5 Hyperlipidemia, unspecified
CPT/HCPCS: 36415; 70450; 70544; 70549; 70553; 71046; 80048; 80053; 80061; 80076; 82962; 83735; 84100; 84484; 85025; 85610; 85730; 93005; 93306; 93880; 97163; 99285; A9577; G0378; J1650; J7030

== ENCOUNTER 2018-10-06 18:47 | Observation (INO) | payer OTHER, SELFPAY ==
--- OUTSIDE RECORDS SUMMARY | 2018-10-06 18:49 | XMS REPORT ---
:1980 [facility] Address [facility] Goodman [address] [place] [id number] Care Team Providers Name Role Phone Unavailable Unavailable Unavailable Problems This patient has no known problems. Allergies, Adverse Reactions, Alerts This patient has no known allergies or adverse reactions. Medications This patient has no known medications.
[2018-10-06] MEDS ORDERED: NA CHLORIDE 0.9% 1,000 ML ONE (19:59)
[2018-10-06] MEDS ORDERED: DIAZEPAM 10 MG/2 ML INJ SYRINGE ONE (20:01)
[2018-10-06 20:34] LABS: Absolute Lymphocytes (CBC) 0.8 K/uL (0.7-4.9); Absolute Monocytes 0.7 K/uL (0.1-1.3); Absolute Neutrophil 14.8 K/uL (1.8-8.0); Basophils % 0.4 % (0-1.3); Hematocrit 47.9 % (39.6-49.0); Lymphocytes % 4.8 % (15.3-44.8); MCH 28.5 pg (27.0-35.0); MCV 85.2 fL (80-100); MPV 8.8 fL (7.6-11.3); RBC Red Blood Cell Count 5.62 M/uL (4.33-5.43)
[2018-10-06 20:55] LABS: ALT/SGPT 52 U/L (12-78); AST/SGOT 29 U/L (15-37); Albumin 4.1 g/dL (3.4-5.0); Alkaline Phosphatase 116 U/L (45-117); BUN Blood Urea Nitrogen 14 mg/dL (7-18); Bicarbonate 25 mmol/L (21-32); Bilirubin Direct 0.2 mg/dL (0-0.2); Bilirubin Total 0.6 mg/dL (0.2-1.0); Glucose Level 128 mg/dL (74-106); Lipase 74 U/L (73-393); Protein, Total 7.9 g/dL (6.4-8.2); Sodium Level 141 mmol/L (136-145); Troponin (Emerg Dept Use Only) < 0.02 ng/mL (0.0-0.045)
[2018-10-06 21:11] LABS: Blood Morphology Comment NOT SEEN (NOT SEEN); Platelet Estimate ADEQ; Urine White Blood Cell Casts OK
--- NOTE | 2018-10-06 23:03 | EDPHYS ---
Physician Documentation [facility] Name: Boby Allen Age: 38 yrs Sex: Male : 1980 Arrival Date: 10/06/2018 Time: 18:52 Bed 13 Private MD: ED Physician Pipe Foster HPI: 10/06 22:50 This 38 yrs old Male presents to ER via EMS with complaints of Dizziness. gs 22:50 The patient presents with dizziness. Onset: The symptoms/episode began/occurred gs acutely, 3 day(s) ago, and became worse and became persistent. Modifying factors: The symptoms are alleviated by nothing, the symptoms are aggravated by nothing. Associated signs and symptoms: Pertinent negatives: abdominal pain, confusion. Associated signs and symptoms: Pertinent positives: vomiting. Severity of symptoms: At their worst the symptoms were severe in the emergency department the symptoms are unchanged. The patient has been recently been admitted at [facility], was discharged earlier this week. Historical: - Allergies: 19:02 No Known Allergies; ph - PMHx: 19:02 TIA; Hyperlipidemia; ph - PSHx: 19:02 Cholecystectomy; ph - Immunization history:: Adult Immunizations unknown. - Social history:: The patient lives at home, Smoking status: Patient/guardian denies using tobacco. - Ebola Screening: : No symptoms or risks identified at this time. ROS: 22:50 All other systems are negative. gs Exam: 22:50 Head/Face: Normocephalic, atraumatic. Eyes: Pupils equal round and reactive to light, gs extra-ocular motions intact. Lids and lashes normal. Conjunctiva and sclera are non-icteric and not injected. Cornea within normal limits. Periorbital areas with no swelling, redness, or edema. ENT: Nares patent. No nasal discharge, no septal abnormalities noted. Tympanic membranes are normal and external auditory canals are clear. Oropharynx with no redness, swelling, or masses, exudates, or evidence of obstruction, uvula midline. Mucous membranes moist. Neck: Trachea midline, no thyromegaly or masses palpated, and no cervical lymphadenopathy. Supple, full range of motion without nuchal rigidity, or vertebral point tenderness. No Meningismus. Chest/axilla: Normal chest wall appearance and motion. Nontender with no deformity. No lesions are appreciated. Cardiovascular: Regular rate and rhythm with a normal S1 and S2. No gallops, murmurs, or rubs. Normal PMI, no JVD. No pulse deficits. Respiratory: Lungs have equal breath sounds bilaterally, clear to auscultation and percussion. No rales, rhonchi or wheezes noted. No increased work of breathing, no retractions or nasal flaring. Abdomen/GI: Soft, non-tender, with normal bowel sounds. No distension or tympany. No guarding or rebound. No evidence of tenderness throughout. Back: No spinal tenderness. No costovertebral tenderness. Full range of motion. Skin: Warm, dry with normal turgor. Normal color with no rashes, no lesions, and no evidence of cellulitis. MS/ Extremity: Pulses equal, no cyanosis. Neurovascular intact. Full, normal range of motion. 22:50 Constitutional: The patient appears alert, awake, uncomfortable. 22:50 Neuro: Orientation: is normal, to person, place, time \T\ situation. Mentation: is normal, Cranial nerves: CN II- XII are normal as tested, Cerebellar function: normal finger to nose testing, Motor: moves all fours, strength is normal, Sensation: no obvious gross deficits. 22:50 Neuro: Cerebellar function: Gait: ataxic. 22:50 ECG was reviewed by the Attending Physician. Vital Signs: 19:00 BP 131 / 80; Pulse 67; Resp 18; Temp 98.0; Pulse Ox 95% on R/A; Weight 107.95 kg; ph 20:00 BP 145 / 87; Pulse 91; Resp 19; Pulse Ox 94% on R/A; jb4 21:30 BP 130 / 86; Pulse 75; Resp 16; Pulse Ox 98% on R/A; jb4 23:00 BP 137 / 90; Pulse 87; Resp 16; Temp 98.4(O); Pulse Ox 94% on R/A; jb4 12 00:00 BP 125 / 88; Pulse 69; Resp 16; Pulse Ox 96% on R/A; jb4 NIH Stroke Scale Scores: 12 19:00 NIHSS Score: 0 jb4 MDM: 19:27 Patient medically screened. 22:50 Differential diagnosis: cardiac arrhythmia, CVA, TIA, vertigo. Data reviewed: vital gs signs, nurses notes. Response to treatment: the patient's symptoms have mildly improved after treatment, still vomiting ataxic. 10/06 19:40 Order name: Basic Metabolic Panel gs 10/06 19:40 Order name: CBC with Diff gs 10/06 19:40 Order name: LFT's 10/06 19:40 Order name: Troponin (emerg Dept Use Only) 10/06 19:40 Order name: Lipase 10/06 20:46 Order name: CBC with Automated Diff; Complete Time: 22:30 EDMS 10/06 19:40 Order name: EKG; Complete Time: 19:41 gs 10/06 20:56 Order name: Basic Metabolic Panel; Complete Time: 22:30 EDMS 10/06 20:56 Order name: Liver (Hepatic) Function; Complete Time: 22:30 EDMS 10/06 20:56 Order name: Troponin (Emerg Dept Use Only); Complete Time: 22:30 EDMS 10/06 20:56 Order name: Lipase; Complete Time: 22:30 EDMS 10/06 21:11 Order name: CBC Smear Scan; Complete Time: 22:30 EDMS 10/06 19:40 Order name: Cardiac monitoring; Complete Time: 20:00 gs 10/06 19:40 Order name: EKG - Nurse/Tech; Complete Time: 20:00 gs 10/06 19:40 Order name: IV Saline Lock; Complete Time: 19:44 gs 10/06 19:40 Order name: Labs collected and sent; Complete Time: 20:29 gs 10/06 19:40 Order name: O2 Per Protocol; Complete Time: 19:44 gs 10/06 19:40 Order name: O2 Sat Monitoring; Complete Time: 19:45 gs EC:50 Rate is 60 beats/min. Rhythm is regular. MA interval is normal. QRS interval is gs prolonged. T waves are Normal. No ST changes noted. Clinical impression: Abnormal EKG without significant change. Interpreted by me. Administered Medications: 20:28 Drug: Valium 5 mg Route: IVP; Site: right antecubital; jb4 21:00 Follow up: Response: No adverse reaction jb4 20:29 Drug: NS 0.9% 1000 ml Route: IV; Rate: 1 bolus; Site: left hand; jb4 21:30 Follow up: Response: No adverse reaction; IV Status: Completed infusion jb4 Disposition: 10/06/18 23:02 Hospitalization ordered by Skylar Roberts for Observation. Preliminary diagnosis is Ataxia, unspecified. - Bed requested for Telemetry/MedSurg (observation). - Status is Observation. jb4 - Condition is Stable. - Problem is new. - Symptoms are unchanged. UTI on Admission? No NIH Stroke Scale - NIH Stroke Score Date: 10/06/2018 Time: 19:00 Total Score = 0 1a. Level of Consciousness (LOC) - 0(Alert) 1b. Level of Consciousness (LOC) (Year \T\ Age) - 0(Both) 1c. LOC Commands (Open \T\ Closes Eyes/Mechanical Assembler) - 0(Both) 2. Best Gaze (Lateral Gaze Paresis) - 0(Normal) 3. Visual Field Loss - 0(No visual loss) 4. Facial Palsy - 0(Normal) 5a. Left Arm: Motor (10-second hold) - 0(No drift) 5b. Right Arm: Motor (10-second hold) - 0(No drift) 6a. Left Leg: Motor (5-second hold - always test supine) - 0(No drift) 6b. Right Leg: Motor (5-second hold - always test supine) - 0(No drift) 7. Limb Ataxia (finger/nose \T\ heel/armstrong - test with eyes open) - 0(Absent) 8. Sensory Loss (pinprick arms/legs/face) - 0(Normal) 9. Best Language: Aphasia (description/naming/reading) - 0(No aphasia) 10. Dysarthria (speech clarity - read or repeat words) - 0(Normal) 11. Extinction and Inattention (visual/tactile/auditory/spatial/personal) - 0(No abnormality) Initials: jb4 Signatures: Dispatcher [employer] EDMS Hayley Zapata RN RN mw Hall, Patricia, RN RN ph Bryson, James, RN RN jb4 Pipe Foster MD MD Corrections: (The following items were deleted from the chart) 23: 23:02 Hospitalization Ordered by Skylar Roberts MD for Observation. Preliminary diagnosis is Ataxia, unspecified. Bed requested for Telemetry/MedSurg (observation). Status is Observation. Condition is Stable. Problem is new. Symptoms are unchanged. UTI on Admission? No. gs 10/07 00:13 12 23:05 10/06/2018 23:02 Hospitalization Ordered by Skylar Roberts MD for jb4 Observation. Preliminary diagnosis is Ataxia, unspecified. Bed requested for Telemetry/MedSurg (observation). Status is Observation. Condition is Stable. Problem is new. Symptoms are unchanged. UTI on Admission? No. mw
--- NOTE | 2018-10-06 23:03 | ER ---
Nurse's Notes [facility] Name: Boby Allen Age: 38 yrs Sex: Male : 1980 Arrival Date: 10/06/2018 Time: 18:52 Bed 13 Private MD: Diagnosis: Ataxia, unspecified Presentation: 10/06 18:53 Presenting complaint: EMS states: " Ot was seen here Sat and dx w/ TIA, states that he ph has felt dizzy and "off balance" since, today began to have N/V and generalized weakness, 4 mg Zofran given 30 min SLATE ROOFER, VSS, BGL 150. Transition of care: patient was not received from another setting of care. Onset of symptoms was October 06, 2018. Risk Assessment: Do you want to hurt yourself or someone else? Patient reports no desire to harm self or others. Initial Sepsis Screen: Does the patient meet any 2 criteria? No. Patient's initial sepsis screen is negative. Does the patient have a suspected source of infection? No. Patient's initial sepsis screen is negative. Care prior to arrival: Medication(s) given: zofran 4 mg, IV initiated. 22 GA, in the left hand, Glucose check: 150. 18:53 Method Of Arrival: EMS: [facility] 18:53 Acuity: TANK 3 ph Historical: - Allergies: 19:02 No Known Allergies; ph - PMHx: 19:02 TIA; Hyperlipidemia; ph - PSHx: 19:02 Cholecystectomy; ph - Immunization history:: Adult Immunizations unknown. - Social history:: The patient lives at home, Smoking status: Patient/guardian denies using tobacco. - Ebola Screening: : No symptoms or risks identified at this time. Screenin:00 Abuse screen: Denies threats or abuse. Nutritional screening: No deficits noted. jb4 Tuberculosis screening: No symptoms or risk factors identified. 19:00 Fall Risk Gait- Impaired (20 pts.). jb4 Assessment: 19:00 General: Appears in no apparent distress. uncomfortable, Behavior is calm, cooperative, jb4 appropriate for age, Pt reports just not feeling well after being here on Thursday, and being diagnosed with a TIA. Reports generalized weakness. Denies one sided weakness.. Pain: Denies pain. Neuro: Level of Consciousness is awake, alert, obeys commands, Oriented to person, place, time, situation, Av Specialist are equal bilaterally Moves all extremities. Full function Speech is normal, Facial symmetry appears normal, Pupils are PERRLA, Intact. Cardiovascular: Heart tones S1 S2 present Patient's skin is warm and dry. Respiratory: Airway is patent Respiratory effort is even, unlabored, Respiratory pattern is regular, symmetrical, Breath sounds are clear bilaterally. GI: Abdomen is round non-distended, Bowel sounds present X 4 quads. Abd is soft and non tender X 4 quads. Reports nausea, vomiting. : No signs and/or symptoms were reported regarding the genitourinary system. EENT: No signs and/or symptoms were reported regarding the EENT system. Derm: Skin is intact, Skin is dry, Skin is normal, Skin temperature is warm. Musculoskeletal: Circulation, motion, and sensation intact. 20:29 Reassessment: Patient appears in no apparent distress at this time. Patient and/or jb4 family updated on plan of care and expected duration. Pain level reassessed. Patient is alert, oriented x 3, equal unlabored respirations, skin warm/dry/pink. 21:36 Reassessment: Patient appears in no apparent distress at this time. Patient and/or jb4 family updated on plan of care and expected duration. Pain level reassessed. Patient is alert, oriented x 3, equal unlabored respirations, skin warm/dry/pink. Pt reports vomiting when standing up to urinate. Provider notified, no new orders at this time. 23:07 Reassessment: Patient appears in no apparent distress at this time. Patient and/or jb4 family updated on plan of care and expected duration. Pain level reassessed. Respirations even and unlabored. Resting with eyes closed and family at the bedside. 10/07 00:11 Reassessment: Patient appears in no apparent distress at this time. Patient and/or jb4 family updated on plan of care and expected duration. Pain level reassessed. Patient is alert, oriented x 3, equal unlabored respirations, skin warm/dry/pink. Vital Signs: 10/06 19:00 BP 131 / 80; Pulse 67; Resp 18; Temp 98.0; Pulse Ox 95% on R/A; Weight 107.95 kg; ph 20:00 BP 145 / 87; Pulse 91; Resp 19; Pulse Ox 94% on R/A; jb4 21:30 BP 130 / 86; Pulse 75; Resp 16; Pulse Ox 98% on R/A; jb4 23:00 BP 137 / 90; Pulse 87; Resp 16; Temp 98.4(O); Pulse Ox 94% on R/A; jb4 10/07 00:00 BP 125 / 88; Pulse 69; Resp 16; Pulse Ox 96% on R/A; jb4 NIH Stroke Scale Scores: 10/06 19:00 NIHSS Score: 0 jb4 ED Course: 18:52 Patient arrived in ED. ph 19:00 Triage completed. ph 19:00 Patient has correct armband on for positive identification. Bed in low position. Call jb4 light in reach. Side rails up X2. Pulse ox on. NIBP on. 19:00 No provider procedures requiring assistance completed. Maintain EMS IV. Dressing jb4 intact. Site clean \\T\\ dry. Gauge \\T\\ site: 22g to the left hand.. IV is intact, Flushed left hand saline lock with 5 ml normal saline. 19:01 Pipe Foster MD is Attending Physician. 19:02 Arm band placed on. ph 19:24 Rell Artis RN is Primary Nurse. jb4 20:29 Initial lab(s) drawn, by fl, sent to lab. Inserted saline lock: 22 gauge in right jb4 antecubital area, using aseptic technique. Blood collected. 23:01 Skylar Roberts MD is Hospitalizing Provider. 10/07 00:00 Patient admitted, IV remains in place. jb4 Administered Medications: 10/06 20:28 Drug: Valium 5 mg Route: IVP; Site: right antecubital; jb4 21:00 Follow up: Response: No adverse reaction jb4 20:29 Drug: NS 0.9% 1000 ml Route: IV; Rate: 1 bolus; Site: left hand; jb4 21:30 Follow up: Response: No adverse reaction; IV Status: Completed infusion jb4 Outcome: 23:02 Decision to Hospitalize by Provider. 10/07 00:00 Admitted to Med/surg accompanied by gamaliel, via stretcher, room 216, with chart, Report jb4 called to SHUBHAM Carver Condition: stable Discharge instructions given to patient, family, Instructed on the need for admit, Demonstrated understanding of instructions. 00:13 Patient left the ED. jb4 NIH Stroke Scale - NIH Stroke Score Date: 10/06/2018 Time: 19:00 Total Score = 0 1a. Level of Consciousness (LOC) - 0(Alert) 1b. Level of Consciousness (LOC) (Year \\T\\ Age) - 0(Both) 1c. LOC Commands (Open \\T\\ Closes Eyes/Test Department Helper) - 0(Both) 2. Best Gaze (Lateral Gaze Paresis) - 0(Normal) 3. Visual Field Loss - 0(No visual loss) 4. Facial Palsy - 0(Normal) 5a. Left Arm: Motor (10-second hold) - 0(No drift) 5b. Right Arm: Motor (10-second hold) - 0(No drift) 6a. Left Leg: Motor (5-second hold - always test supine) - 0(No drift) 6b. Right Leg: Motor (5-second hold - always test supine) - 0(No drift) 7. Limb Ataxia (finger/nose \\T\\ heel/armstrong - test with eyes open) - 0(Absent) 8. Sensory Loss (pinprick arms/legs/face) - 0(Normal) 9. Best Language: Aphasia (description/naming/reading) - 0(No aphasia) 10. Dysarthria (speech clarity - read or repeat words) - 0(Normal) 11. Extinction and Inattention (visual/tactile/auditory/spatial/personal) - 0(No abnormality) Initials: [facility] Signatures: Mimi Miller RN RN Rell Artis RN RN jb4 Pipe Foster MD MD Corrections: (The following items were deleted from the chart) 10/06 21:41 19:00 GI: Abdomen is round non-distended, Bowel sounds present X 4 quads. Abd jb4 is soft and non tender X 4 quads. jb4 21:41 21:36 Reassessment: Patient appears in no apparent distress at this time. jb4 Patient and/or family updated on plan of care and expected duration. Pain level reassessed. Patient is alert, oriented x 3, equal unlabored respirations, skin warm/dry/pink. jb4 23:26 23:00 BP 137 / 90; Pulse 87bpm; Resp 16bpm; Pulse Ox 94% RA; jb4 jb4
[2018-10-07] MEDS: NA CHLORIDE 0.9% 1,000 ML IV SCH ×3 (00:34→21:03)
[2018-10-07 00:43] VITALS: BMI 29.5
[2018-10-07] MEDS: ONDANSETRON 4 MG/2 ML VIAL IV PRN ×2 (04:21→14:54)
[2018-10-07] MEDS: ACETAMINOPHEN 500 MG TAB PO PRN ×2 (04:26→14:54)
[2018-10-07 04:46] LABS: Absolute Lymphocytes (CBC) 1.2 K/uL (0.7-4.9); Absolute Monocytes 0.5 K/uL (0.1-1.3); Absolute Neutrophil 9.9 K/uL (1.8-8.0); Basophils % 0.2 % (0-1.3); Hematocrit 46.2 % (39.6-49.0); Lymphocytes % 10.6 % (15.3-44.8); MCH 29.2 pg (27.0-35.0); MCV 84.3 fL (80-100); MPV 9.3 fL (7.6-11.3); Monocytes % 4.5 % (3.3-12.3); RBC Red Blood Cell Count 5.48 M/uL (4.33-5.43)
[2018-10-07 05:18] LABS: ALT/SGPT 47 U/L (12-78); AST/SGOT 22 U/L (15-37); Albumin 3.7 g/dL (3.4-5.0); Alkaline Phosphatase 108 U/L (45-117); BUN Blood Urea Nitrogen 10 mg/dL (7-18); Bicarbonate 24 mmol/L (21-32); Bilirubin Total 0.6 mg/dL (0.2-1.0); Glucose Level 115 mg/dL (74-106); HDL Cholesterol 31 mg/dL (40-60); LDL Cholesterol, Calculated 90 (<130); Potassium 3.9 mmol/L (3.5-5.1); Protein, Total 7.1 g/dL (6.4-8.2); Sodium Level 140 mmol/L (136-145)
[2018-10-07] MEDS: MORPHINE 2 MG/ML SYR IV PRN ×2 (06:24→11:12)
[2018-10-07] MEDS ORDERED: ASPIRIN EC 81 MG TAB PO SCH (09:00)
[2018-10-07] MEDS ORDERED: ENOXAPARIN 40 MG/0.4 ML SQ SCH (09:00)
--- NOTE | 2018-10-07 11:29 | EKG ---
Test Date: 2018-10-06 Test Time: 19:52:05 Beam Department Supervisor: LAITH MEASUREMENT RESULTS: Intervals: Rate: 60 MO: 172 QRSD: 114 QT: 408 QTc: 408 Lyle: P: 21 MO: 172 QRS: 45 T: 29 INTERPRETIVE STATEMENTS: Normal sinus rhythm Normal ECG Compared to ECG 10/02/2018 20:23:34 Left ventricular hypertrophy no longer present Myocardial infarct finding no longer present Electronically Signed On 10-07-18 11:27:49 WIND TECHNICIAN by Vahe Munguia
[2018-10-07 11:49] LABS: RPR Titer ND
[2018-10-07 12:35] LABS: Protime INR 1.04
[2018-10-07 12:42] LABS: Folic Acid, (Folate) 15.9 ng/mL (3.1-17.5)
[2018-10-07] MEDS ORDERED: MECLIZINE HCL 12.5 MG TAB PO PRN (14:56)
[2018-10-07] MEDS ORDERED: LORazepam 2 MG/ML VIAL IV PRN (15:23)
--- NOTE | 2018-10-07 16:40 | P.HP ---
Certification for Inpatient Patient admitted to: Observation With expected LOS: <2 Midnights Patient will require the following post-hospital care: None Practitioner: I am a practitioner with admitting privileges, knowledge of patient current condition, hospital course, and medical plan of care. Services: Services provided to patient in accordance with Admission requirements found in Title 42 Section 412.3 of the Code of Federal Regulations Patient History Date of Service: 10/06/18 Reason for admission: Ataxic History of Present Illness: Patient is a 38-year-old gentleman who was in the hospital few days ago with ataxia. He states at that time he was dripped into the left. He was discharged after his MRI studies were negative. He continues to have ataxic gait. He became really unsteady yesterday and almost fell. His states that this is not like him and she is unsure as to what is going on. He said he has had fevers at home for the last couple of days. He has some neck pain. He denies any lower back pain. He does remain unsteady on ambulation. Unsure as to what is going on except that he may have some underlying neuropathy. We will work him up for other etiologies. Allergies No Known Allergies Allergy (Verified 10/07/18 00:28) Home Medications: NK [No Home Meds] 10/07/18 - Past Medical/Surgical History Has patient received pneumonia vaccine in the past: No Diabetic: No -: none -: cholecystectomy - Family History Mother Medical History: Hypertension, Diabetes Father Medical History: Hypertension - Social History Smoking Status: Never smoker Alcohol use: Yes CD- Drugs: No Caffeine use: Yes Place of Residence: Home Review of Systems 10-point ROS is otherwise unremarkable Physical Examination - Vital Signs Temperature: 97.4 F Blood Pressure: 133/70 Pulse: 56 Respirations: 18 Pulse Ox (%): 93 - Physical Exam General: Alert, In no apparent distress, Oriented x3 HEENT: Atraumatic, PERRLA, Mucous membr. moist/pink, EOMI, Sclerae nonicteric Neck: Supple, 2+ carotid pulse no bruit, No LAD, Without JVD or thyroid abnormality Respiratory: Clear to auscultation bilaterally, Normal air movement Cardiovascular: Regular rate/rhythm, Normal S1 S2, No murmurs Gastrointestinal: Normal bowel sounds, Hypoactive, Soft and benign, Non- distended, No tenderness Musculoskeletal: No clubbing, No swelling, No tenderness Integumentary: No rashes Neurological: Normal gait, Normal speech, Normal strength at 5/5 x4 extr, Normal tone, Sensation intact, Cranial nerves 3-12 intact, Normal affect Lymphatics: No axilla or inguinal lymphadenopathy - Studies Laboratory Data (last 24 hrs) 10/06/18 20:21: WBC 16.3 H D, Hgb 16.0, Hct 47.9, Plt Count 185 10/06/18 20:21: Sodium 141, Potassium 4.0, BUN 14, Creatinine 0.80, Glucose 128 H, Total Bilirubin 0.6, AST 29, ALT 52, Alkaline Phosphatase 116, Lipase 74 Assessment & Plan - Problems (Diagnosis) (1) Ataxic gait Onset Date: 10/04/18 Current Visit: No Status: Acute (2) Morbid obesity with BMI of 40.0-44.9, adult Onset Date: 10/04/18 Current Visit: No Status: Acute (3) Meningismus Current Visit: Yes Status: Acute - Plan Plan: 1. IV fluids 2. Pain control 3. neurology consultation 4. patient complaining of fever and meningismus so may as well do an LP 5. if not done in a.m. then I will do it tomorrow p.m. 6. GI/DVT prophylaxis - Advance Directives Does patient have a Living Will: No Does patient have a Durable POA for Healthcare: No - Code Status/Comfort Care Code Status Assessed: Yes Code Status: Full Code Critical Care: No Time Spent Managing PTS Care (In Minutes): 50
--- NOTE | 2018-10-07 18:50 | P.PN ---
Subjective Date of Service: 10/07/18 Chief Complaint: Ataxic Patient seen and examined at bedside with RN. Chart reviewed. Case discussed with neurology. Currently patient is complaining of having nausea vomiting and vertigo-like symptoms. When physical therapy is working with the patient patient does have a drop in his blood pressure and heart rate. Review of Systems 10-point ROS is otherwise unremarkable Physical Examination - Vital Signs Temperature: 97.4 F Blood Pressure: 133/70 Pulse: 56 Respirations: 18 Pulse Ox (%): 93 - Physical Exam General: Alert, In no apparent distress HEENT: Atraumatic, PERRLA, EOMI Neck: Supple, JVD not distended Respiratory: Clear to auscultation bilaterally, Normal air movement Cardiovascular: Regular rate/rhythm, Normal S1 S2 Gastrointestinal: Normal bowel sounds, No tenderness Musculoskeletal: No tenderness Integumentary: No rashes Neurological: Normal speech, Normal tone, Normal affect Lymphatics: No axilla or inguinal lymphadenopathy - Studies Laboratory Data (last 24 hrs) 10/06/18 20:21: WBC 16.3 H D, Hgb 16.0, Hct 47.9, Plt Count 185 10/06/18 20:21: Sodium 141, Potassium 4.0, BUN 14, Creatinine 0.80, Glucose 128 H, Total Bilirubin 0.6, AST 29, ALT 52, Alkaline Phosphatase 116, Lipase 74 Medications List Reviewed: Yes Assessment And Plan - Current Problems (Diagnosis) (1) BPPV (benign paroxysmal positional vertigo) Current Visit: Yes Status: Acute Plan: BPPV noted -Started on Meclizine and Ativan -neurology consulted. -PT to do Mahad tomlin Qualifiers: Laterality: unspecified laterality Qualified Code(s): H81.10 - Benign paroxysmal vertigo, unspecified ear (2) Ataxic gait Onset Date: 10/04/18 Current Visit: No Status: Acute Plan: Most Likley 2.2 to BPPV -Will B12, Folate and RPR -WIll also get LP anitha to r.o acute abnormality Discharge Plan: Home Plan to discharge in: 48 Hours Critical Care: No
[2018-10-07 21:54] LABS: RPR (Rapid Plasma Reagin) NON-REACT (NON-REACT)
[2018-10-07 22:45] VITALS: O2SAT 95
--- NOTE | 2018-10-07 23:28 | CON ---
Reason For Consultation: Consultation called because of dizziness. History Of Present Illness: Mr. Allen is a 38-year-old patient with history of dyslipidemia , who comes in to the [facility] with sudden onset of vertigo. 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 He had to hold onto objects and the episodes may last 30 minutes to hours. Episodes fluctuated. He did fairly well, but today of admission, which is the 5th, he said he bent down to work on tire and w hen he came back up, the symptoms became very severe. He became nauseated throughout. At [facility], his workup included a head CT scan, which was unremarkable for any ischemic or hemorrhagic changes. Brain MRI subsequently ruled out presence of any strokes. No acute abnormalities were pablo ntified. His MRA of the head and neck was also unremarkable. Carotid artery ultrasound showed no ev idence of hemodynamically significant stenosis, it was unremarkable. Echocardiogram shows ejection f raction 52%. Study was normal. His electrocardiogram was a normal study with normal sinus rhythm. Since the patient's admission, he has had some improvement in his symptoms, but still notes if he quynh ckly turns his head to the right, he will feel that he is falling to the right. When he turns to the left, the symptoms improve. Past Medical History: As indicated. Surgical History: Cholecystectomy. Allergies: NO KNOWN DRUG ALLERGIES. Medications: He was given aspirin in the emergency room along with some diazepam and he is on Loveno x for DVT prophylaxis. Just started receiving Zofran and no meclizine. Family History: Noncontributory. Review of Systems: He denies any recent fevers, chills, nausea, vomiting, myalgias, arthralgias, headache, weight change , rash, or psychiatric complaints. No other complaints on 10-point systems review. Physical Examination: Vital Signs: Blood pressure 133/70, pulse 56, respiratory rate 16, temperature 97.4, and oxygen satu ration 95% on room air. General: Mr. Allen is resting comfortably in bed. He is in no acute distress. He is normocephalic, atraumatic. His sclerae are anicteric. His oropharynx is moist and pink. Neck: Supple. Chest: Clear. Heart: Regular. Extremities: Show no edema, cyanosis, or clubbing. He does have a positive Nylen-Barany maneuver. Neurological: No focal deficits on cranial nerves, motor, sensory, coordination, gait, and reflexes which are 2+ bilaterally, upper and lower extremities. Laboratory Studies: White blood cell count 11.6, hemoglobin 16.0, and hematocrit 46.2. INR 1.04. C hemistries; sodium 140, potassium 3.9, chloride 109, carbon dioxide 24, BUN 10, creatinine 0.8, and c alcium 8.2. Vitamin D is low at 15. B12 normal at 507. Liver function studies normal. Folate leve l normal. RPR is pending. Assessment: Mr. Allen is a 38-year-old patient with benign paroxysmal positional vertigo. Plan: 1.Home Kenyatta maneuver, which showed to the patient. 2.Meclizine 25 mg twice daily as needed. 3.The patient will be discharged home. Follow up with Dr. Cedillo in clinic in 1 month. REGINA/NEHAL Voice ID: [id number] Report ID: [id number]
[2018-10-07 23:44] LABS: Urine Appearance CLEAR; Urine Blood NEGATIVE (NEG); Urine Color YELLOW; Urine Glucose NEGATIVE (NEG); Urine Protein NEGATIVE (NEG)
[2018-10-07 23:49] LABS: Urine Bilirubin NEGATIVE (NEG)
[2018-10-07 23:50] LABS: Urine Microscopic Reflex NO UMIC
[2018-10-08] MEDS: ACETAMINOPHEN 500 MG TAB PO PRN (00:25)
[2018-10-08] MEDS: NA CHLORIDE 0.9% 1,000 ML IV SCH (05:06)
[2018-10-08 10:58] VITALS: BP 142/77; TEMP 97.5
--- NOTE | 2018-10-08 15:38 | P.SSS ---
Patient History Date of Service: 10/08/18 Reason for admission: Ataxic History of Present Illness: Patient is a 38-year-old gentleman who was in the hospital few days ago with ataxia. He states at that time he was dripped into the left. He was discharged after his MRI studies were negative. He continues to have ataxic gait. He became really unsteady yesterday and almost fell. His states that this is not like him and she is unsure as to what is going on. He said he has had fevers at home for the last couple of days. He has some neck pain. He denies any lower back pain. He does remain unsteady on ambulation. Unsure as to what is going on except that he may have some underlying neuropathy. We will work him up for other etiologies. Allergies No Known Allergies Allergy (Verified 10/07/18 00:28) Home Medications: Meclizine HCl [Antivert*] 12.5 mg PO Q6H PRN #60 tab 10/08/18 Ondansetron HCl [Zofran] 4 mg PO DAILY PRN #15 tablet 10/08/18 - Past Medical/Surgical History Has patient received pneumonia vaccine in the past: No Diabetic: No -: none -: cholecystectomy - Family History Mother -: Hypertension, Diabetes Father -: Hypertension - Social History Smoking Status: Never smoker Alcohol use: Yes CD- Drugs: No Caffeine use: Yes Place of Residence: Home Review of Systems 10-point ROS is otherwise unremarkable Physical Examination - Vital Signs Temperature: 97.5 F Blood Pressure: 142/77 Pulse: 78 Respirations: 16 Pulse Ox (%): 93 - Physical Exam General: Alert, In no apparent distress HEENT: Atraumatic, PERRLA, Mucous membr. moist/pink, EOMI, Sclerae nonicteric Neck: Supple, 2+ carotid pulse no bruit, No LAD, Without JVD or thyroid abnormality Respiratory: Clear to auscultation bilaterally, Normal air movement Cardiovascular: Regular rate/rhythm, Normal S1 S2 Gastrointestinal: Normal bowel sounds, No tenderness Musculoskeletal: No tenderness Integumentary: No rashes Neurological: Normal gait, Normal speech, Normal strength at 5/5 x4 extr, Normal tone, Normal affect Lymphatics: No axilla or inguinal lymphadenopathy - Diagnosis (Problem(s)) (1) BPPV (benign paroxysmal positional vertigo) Status: Acute Plan: BPPV noted -Started on Meclizine and Ativan -Doing well overall. -discharge today on meclizine and p.r.n. Zofran Qualifiers: Laterality: unspecified laterality Qualified Code(s): H81.10 - Benign paroxysmal vertigo, unspecified ear (2) Ataxic gait Onset Date: 10/04/18 Status: Acute Plan: Most Likley 2.2 to BPPV Lab work within normal limit. Neurology recommended patient to be discharged home safely upon meclizine and p.r.n. Zofran Treatment Summary: Overall during the hospital stay patient was stable Patient was initially admitted to the hospital for ataxic gait. Neurology was consulted who recommended patient get a lab work done with B12 folate and RPR. Patient's physical exam revealed the patient had BPPV. Patient was started on meclizine and had marked improvement in his symptoms. Patient was able to ambulate for physical therapy. Patient then was discharged home under stable condition was asked to continue taking meclizine along with p.r.n. Zofran for nausea vomiting. Patient demonstrated understanding and thus was discharged home under stable condition - Disposition Disposition: ROUTINE DISCHARGE Condition: GOOD Patient Discharge Instructions: Please f.u with PCP and Dr Cedillo in 1 to 2 week post discharge. New medication. Meclizine Daily q6h PRN for Dizziness Diet: Regular Activity: Ad janeth
== END 2018-10-08 12:02 | disposition home or self-care (01) ==
LOC: ER 18:47 → ERHOLD 23:02 → 2ND 23:55
PROVIDERS: ADMIT Hospitalist; ATTEND Hospitalist
DX: H81.10 Benign paroxysmal vertigo, unspecified ear (principal); E66.01 Morbid (severe) obesity due to excess calories; Z68.29 Body mass index [BMI] 29.0-29.9, adult; R29.1 Meningismus
CPT/HCPCS: 36415; 77003; 80048; 80053; 80061; 80076; 81003; 82306; 82607; 82746; 83690; 84484; 85025; 85610; 85730; 86592; 93005; 96361; 96374; 97163; 99285; G0378; J1650; J2270; J2405; J3360; J7030